=== PATIENT | male | born 1965 | race Two or more races ===

== ENCOUNTER 2018-02-15 22:55 | Inpatient (IN) | payer OTHER ==
[~2018-02-15] VITALS: Ht 160 cm; Wt 158.8 kg
--- NOTE | 2018-02-15 23:07 | NUR ---
PT BIBRA FROM HOME C/O SOB X1 HR, WHICH WORSENS WITH EXERTION. PER EMS, PT WAS 90% ON ROOM AIR AFTER WALKING AROUND PRIOR TO LOADING INTO THE AMBULANCE. RESP LABORED, RETRACTIONS, MODERATE SOB. PLACED ON 2L VIA NC. SKIN WARM DRY. PT ENDORSES HE IS A 1PPD SMOKER. IN ER BED 08 ON MONITOR.
[2018-02-15] MEDS ORDERED: methylPREDNISolone SOD SUCC 125 MG/2ML VIAL IV ONE (23:30)
[2018-02-15] MEDS ORDERED: ALBUTEROL FS 2.5 MG/3 ML VIAL.NEB NEB ONE (23:30)
[2018-02-15 23:56] LABS: BASOPHILS # (AUTO) 0.2 /CMM (0.0-0.2); BASOPHILS % (AUTO) 2.7 % (0.0-2.0); EOSINOPHILS % (AUTO) 3.4 % (0.0-6.0); HEMATOCRIT 44 % (39-51); HEMOGLOBIN 14.4 g/dL (13.5-17.5); LYMPHOCYTES # (AUTO) 1.2 /CMM (0.8-4.8); LYMPHOCYTES % (AUTO) 15.9 % (20.0-44.0); MEAN CORPUSCULAR HEMOGLOBIN 26 PG (26.0-33.0); MEAN CORPUSCULAR HGB CONC 33 g/dl (31.0-36.0); MEAN CORPUSCULAR VOLUME 81 fL (80-96); MONOCYTES # (AUTO) 0.7 /CMM (0.1-1.30); NEUTROPHILS # (AUTO) 4.9 /CMM (1.8-8.9); PLATELET COUNT (AUTO) 239 /CMM (150-450); RDW COEFFICIENT OF VARIATION 16.4 (11.5-15.0); RED BLOOD CELL COUNT(AUTO) 5.46 MIL/uL (4.5-6.0); WHITE BLOOD COUNT (AUTO) 7.2 K/uL (4.3-11.0)
[2018-02-16 00:10] LABS: CALCIUM, SERUM 8.3 mg/dL (8.5-10.1); CARBON DIOXIDE 35 mmol/L (21-32); CHLORIDE 100 mmol/L (98-107); CREATININE 0.7 mg/dL (0.6-1.3); GLUCOSE 83 mg/dL (74-106); SODIUM SERUM 133 mmol/L (136-145); UREA NITROGEN, BLOOD 10 mg/dL (7-18)
[2018-02-16 00:16] LABS: INR 0.95 (0.87-1.13)
[2018-02-16 00:18] LABS: TROPONIN I < 0.017 ng/mL (0.00-0.056)
[2018-02-16] MEDS ORDERED: methylPREDNISolone SOD SUCC 125 MG/2ML VIAL ONE (00:21)
[2018-02-16 00:23] LABS: ALANINE AMINOTRANSFERASE 25 U/L (12-78); ALBUMIN 3.3 g/dL (3.4-5.0); ALKALINE PHOSPHATASE 83 U/L (46-116); ASPARTATE AMINOTRANSFERASE 17 U/L (15-37); B-TYPE NATRIURETIC PEPTIDE 108 PG/ML (0-125); BILIRUBIN,DIRECT 0.1 mg/dL (0.0-0.2); BILIRUBIN,TOTAL 0.4 mg/dL (0.2-1.0)
[2018-02-16] MEDS ORDERED: ALBUTEROL FS 2.5 MG/3 ML VIAL.NEB ONE (00:25)
--- NOTE | 2018-02-16 00:29 | NUR ---
NOTED HYPERTENSION; NOTIFIED DR SERVIN. NEW ORDERS NOTED
[2018-02-16] MEDS ORDERED: FUROSEMIDE 40 MG/4 ML VIAL IV ONE (00:30)
[2018-02-16] MEDS ORDERED: FUROSEMIDE 40 MG/4 ML VIAL ONE (00:38)
--- NOTE | 2018-02-16 01:00 | NUR ---
RESTING QUIETLY, NAD NOTED. TOLERATING WELL ON 2L VIA NC.
--- NOTE | 2018-02-16 02:49 | NUR ---
PT DOES NOT REMEMBER HIS HOME MED NAMES OR DOSAGES
--- NOTE | 2018-02-16 02:51 | NUR ---
REPORT GIVEN TO KRISH BOSS FOR ADMISSION
--- NOTE | 2018-02-16 03:48 | NUR ---
PT TRANSPORTED TO [facility] RM 112-1 IN STABLE CONDITION VIA WHEELCHAIR, PT REQUESTED.
[2018-02-16 04:00] VITALS: BP 127/78
[2018-02-16] MEDS ORDERED: ACETAMINOPHEN 325 MG TABLET PO PRN (04:00)
[2018-02-16] MEDS ORDERED: HYDROCODONE/APAP 5/325MG 1 EACH TABLET PO PRN (04:30)
[2018-02-16] MEDS ORDERED: ALBUTEROL FS 2.5 MG/0.5 ML VIAL.NEB NEB PRN (04:30)
[2018-02-16] MEDS ORDERED: IPRATROPIUM NEB FS 0.5 MG/2.5 ML AMPUL.NEB NEB PRN (04:30)
--- NOTE | 2018-02-16 05:32 | NUR ---
RN NOTE RECEIVED PATIENT FROM ER VIA WHEELCHAIR, SOB NOTED, ON 2L/MIN VIA NASAL CANULA, SO2 93%, GENERALIZED PAIN, PAIN MEDICATION ADMINISTERED, DX CHEST PAIN, ALERT/ORIENTED X4, ABLE TO TRANSFER FROM CHAIR TO BED, REQUESTED TO SEAT IN THE CHAIR, ALL PICTURES TAKEN AND PLACED IN THE CHART, ALL SAFETY MEASURES TAKEN, WILL CONTINUE TO MONITOR PATIENT
[2018-02-16] MEDS ORDERED: METF-442 PO (05:54)
[2018-02-16] MEDS ORDERED: ATOR40TA PO (05:54)
[2018-02-16] MEDS ORDERED: LOSA50TA21 PO (05:59)
[2018-02-16] MEDS ORDERED: [UNRECOGNIZED DRUG - CODE] (05:59)
[2018-02-16] MEDS ORDERED: FURO-144 PO (06:00)
[2018-02-16] MEDS ORDERED: methylPREDNISolone SOD SUCC 40 MG/ML VIAL IV SCH (06:00)
--- NOTE | 2018-02-16 06:40 | NUR ---
RN NOTE PATIENT IS NOT ABLE TO URINATE, NOTIFIED DR MELVA Benites, NEW ORDER OF HARVEY CATH IS GIVEN AND CARRIED OUT, NOTIFIED DR FRYE THAT MED RECON. WAS DONE, DR MELVA Benites SAID THAT HE WILL REVIEW MEDICATION ONCE HE COMES IN THE MORNING, CHARGE NURSE IS AWARE, WILL NOTIFY AM SHIFT
[2018-02-16 06:56] LABS: TROPONIN I < 0.017 ng/mL (0.00-0.056)
[2018-02-16 07:08] LABS: CHOLESTEROL 217 mg/dL (<200); HDL CHOLESTEROL 47 mg/dL (40-60); LDL 161 mg/dL (0-99); TRIGLYCERIDES 111 mg/dL (30-150)
[2018-02-16 07:18] LABS: CALCIUM, SERUM 8.4 mg/dL (8.5-10.1); CARBON DIOXIDE 31 mmol/L (21-32); CHLORIDE 98 mmol/L (98-107); CREATININE 0.8 mg/dL (0.6-1.3); GLUCOSE 159 mg/dL (74-106); POTASSIUM 4.5 mmol/L (3.5-5.1); SODIUM SERUM 137 mmol/L (136-145); UREA NITROGEN, BLOOD 11 mg/dL (7-18)
[2018-02-16 07:32] LABS: BASOPHILS % (AUTO) 0.2 % (0.0-2.0); EOSINOPHILS % (AUTO) 0.4 % (0.0-6.0); HEMATOCRIT 45 % (39-51); HEMOGLOBIN 14.9 g/dL (13.5-17.5); LYMPHOCYTES % (AUTO) 5.9 % (20.0-44.0); MEAN CORPUSCULAR HEMOGLOBIN 27 PG (26.0-33.0); MEAN CORPUSCULAR HGB CONC 33 g/dl (31.0-36.0); MEAN CORPUSCULAR VOLUME 81 fL (80-96); MONOCYTES % (AUTO) 1.7 % (2.0-12.0); NEUTROPHILS % (AUTO) 91.8 % (43.0-81.0); PLATELET COUNT (AUTO) 222 /CMM (150-450); RDW COEFFICIENT OF VARIATION 17.9 (11.5-15.0); RED BLOOD CELL COUNT(AUTO) 5.58 MIL/uL (4.5-6.0); WHITE BLOOD COUNT (AUTO) 8.9 K/uL (4.3-11.0)
[2018-02-16 08:00] VITALS: BP 138/79
[2018-02-16] MEDS: PANTOPRAZOLE 40 MG TABLET.DR PO SCH (08:09)
[2018-02-16] MEDS: ASPIRIN 81 MG TAB.CHEW PO SCH (08:09)
[2018-02-16] MEDS ORDERED: *INSULIN REGULAR(HUMULIN R)HUM 100 UNIT/ML VIAL SQ PRN (08:30)
[2018-02-16] MEDS ORDERED: DEXTROSE 50%-WATER 50 ML DISP.SYRIN IV PRN (08:30)
[2018-02-16] MEDS: BLOOD SUGAR DIAGNOSTIC 1 EACH STRIP VI SCH ×4 (08:41→22:03)
--- NOTE | 2018-02-16 08:51 | NUR ---
WOUND CARE CONSULT: PT PRESENTS WITH REDNESS AND EDEMA TO LOWER LEGS WITH LEFT CALF MORE EDEMATOUS THAN RIGHT. MD IN TO EXAMINE PT. DEFER TO MD FOR LOWER LEG REDNESS, EDEMA. PT COMPLAINS OF GROIN FOLD ITCHING. SLIGHT REDNESS NOTED TO GROIN FOLDS AND PERINEUM. RECOMMENDATIONS MADE FOR SKIN PROTECTION AND CARE. DISCUSSED WITH NURSING STAFF. CANDICE GAR NOTED. PT CONTINENT OF STOOL. PT ABLE TO ASSIST WITH TURNING AND REPOSITIONING IN BED. WILL SEE PRN. IN AGREEMENT WITH PLAN OF CARE. Addendum: 02/16/18 at 0853 by HARPAL CANNON WNDNU Amended: Links added.
[2018-02-16] MEDS ORDERED: LEVOFLOXACIN (250MG) 250 MG TABLET PO SCH (09:00)
[2018-02-16] MEDS ORDERED: ENOXAPARIN SODIUM 40 MG/0.4 ML DISP.SYRIN SQ SCH (09:00)
[2018-02-16] MEDS: METFORMIN XR 500 MG TAB.SR.24H PO SCH (10:36)
[2018-02-16] MEDS: ATORVASTATIN 40 MG TABLET PO SCH ×2 (10:36→18:00)
[2018-02-16] MEDS: LOSARTAN POTASSIUM 50 MG TABLET PO SCH ×2 (10:37→17:59)
[2018-02-16] MEDS: Z GUARD REMEDY 2 OZ OINT TP SCH (10:37)
[2018-02-16] MEDS: CLOTRIMAZOLE 1% 15 GM TUBE TP SCH ×2 (10:37→18:05)
[2018-02-16] MEDS: FUROSEMIDE 40 MG/4 ML VIAL IV SCH (10:38)
[2018-02-16] MEDS: INSULIN REGULAR, HUMAN 100 UNIT/ML 3 ML VIAL SQ PRN ×3 (10:41→18:01)
[2018-02-16] MEDS: LEVOFLOXACIN (500MG) 500 MG TABLET PO SCH (10:55)
[2018-02-16 12:00] VITALS: BP 127/70
[2018-02-16 16:00] VITALS: BP 95/58
[2018-02-16 16:08] VITALS: BP 95/58
[2018-02-16] MEDS: methylPREDNISolone SOD SUCC 40 MG/ML VIAL IV SCH (17:57)
--- NOTE | 2018-02-16 18:37 | NUR ---
RN NOTE PT WAS SUPPOSED TO BE TRANSFERRED TO [facility], ARRANGEMENTS WERE DONE BUT WHEN PT LEARNED ABOUT TRANSFER HE BECAME VERY UPSET, DR JO CONTACTED, HE SPOKE WITH DR, PT STATED "I WILL NOT GO THERE, THIS IS TOO MUCH FOR ME, I WAITED FOR 6-7HR IN ER, I DO NOT WANT TO GO EVER SAME THING AGAIN". PER DR JO PT TO STAY OVERNIGHT AND DC HOME TOMORROW.
[2018-02-16 20:00] VITALS: BP 127/59
--- NOTE | 2018-02-16 21:29 | NUR ---
RN NOTE BLOOD IN THE HARVEY CATH NOTED, NOTIFIED DR MELVA Cisneros, PER MD ORDER COLLECT URINE AND HOLD LOVENOX, ORDER WAS CARRIED OUT
--- NOTE | 2018-02-16 23:00 | NUR ---
RN NOTE CHARGE NURSE RAO RECEIVED CALL FROM JUANY FROM [facility], PER JUANY PATIENT NEEDS TO BE TRANSFERRED TODAY DUE TO INSURANCE PURPOSES, NOTIFIED DR SANDRO Benites, PER MD SANDRO SOLIS TO PUT DISCHARGE ORDER AND TRANSFER PATIENT TO [facility], CALLED [facility] AT AND , AND WAS TOLD THAT THEY DO NOT HOLD BED FOR PATIENT BECAUSE IT WAS CANCELLED BY THE MORNING SHIFT AND BARIATRIC BED IS NOT AVAILABLE, NOTIFIED JUANY AT , JUANY (FROM [facility]) SPOKE TO [facility], PER JUANY SHE WILL PUT ON HOLD AMBULANCE FOR NOW AND WAIT UNTIL BED WILL BE AVAILABLE IN THE [facility], CHARGE NURSE YEH IS AWARE, FELTER TENNIS BALLS IS AWARE, IS AWARE
--- NOTE | 2018-02-16 23:37 | NUR ---
RN NOTE PATIENT WILL BE GOING TO [facility], PATIENT REFUSED TO REMOVE HARVEY CATHETER, NOTIFIED DR SANDRO Benites, NO NEW ORDERS AT THIS TIME
[2018-02-17] VITALS: BP 138/74
[2018-02-17 04:00] VITALS: BP 133/71
--- NOTE | 2018-02-17 06:34 | NUR ---
RN NOTE SPOKE TO JAYLEN ([facility] LOADING MACHINE OPERATOR HELPER), PER FERN PICKER JAYLEN BED IS NOT AVAILABLE IN THE [facility] YET, WILL NOTIFY MORNING SHIFT ONCE AVAILABLE, WILL ENDORSE TO AM SHIFT
[2018-02-17] MEDS: methylPREDNISolone SOD SUCC 40 MG/ML VIAL IV SCH (06:43)
[2018-02-17 07:33] LABS: CALCIUM, SERUM 8.4 mg/dL (8.5-10.1); CREATININE 0.7 mg/dL (0.6-1.3); POTASSIUM 3.9 mmol/L (3.5-5.1)
[2018-02-17 07:43] LABS: BASOPHILS % (AUTO) 0.2 % (0.0-2.0); EOSINOPHILS % (AUTO) 0.2 % (0.0-6.0); HEMATOCRIT 45 % (39-51); HEMOGLOBIN 14.4 g/dL (13.5-17.5); LYMPHOCYTES # (AUTO) 1.1 /CMM (0.8-4.8); LYMPHOCYTES % (AUTO) 8.4 % (20.0-44.0); MEAN CORPUSCULAR HEMOGLOBIN 26 PG (26.0-33.0); MEAN CORPUSCULAR HGB CONC 32 g/dl (31.0-36.0); MEAN CORPUSCULAR VOLUME 81 fL (80-96); MONOCYTES # (AUTO) 1.2 /CMM (0.1-1.30); MONOCYTES % (AUTO) 9.4 % (2.0-12.0); NEUTROPHILS # (AUTO) 10.6 /CMM (1.8-8.9); NEUTROPHILS % (AUTO) 81.8 % (43.0-81.0); PLATELET COUNT (AUTO) 255 /CMM (150-450); RDW COEFFICIENT OF VARIATION 16.3 (11.5-15.0); WHITE BLOOD COUNT (AUTO) 12.9 K/uL (4.3-11.0)
--- NOTE | 2018-02-17 07:45 | NUR ---
COMMUNICATION ARTS LECTURER OPENING NOTES RECEIVED PATIENT AWAKE ALERT AND VERBALLY RESPONSIVE, ABLE TO MAKE NEEDS KNOWN. RESPIRATIONS EVEN AND UNLABORED, DENIES ANY PAIN OR DISCOMFORT AT THIS TIME. HARVEY CATHETER IN PLACE DRAINING PINK TINGED URINE, MD AWARE, LOVENOX AND ASA ON HOLD PER MD. PATIENT TO BE DISCHARGED TO [facility], WILL FOLLOW UP WITH CM. SAFETY MEASURES IN PLACE WILL CONTINUE TO MONITOR
[2018-02-17] MEDS: BLOOD SUGAR DIAGNOSTIC 1 EACH STRIP VI SCH (07:48)
[2018-02-17] MEDS: INSULIN REGULAR, HUMAN 100 UNIT/ML 3 ML VIAL SQ PRN (07:51)
[2018-02-17 08:00] VITALS: BP 133/68
[2018-02-17] MEDS: METFORMIN XR 500 MG TAB.SR.24H PO SCH (08:37)
[2018-02-17] MEDS: LEVOFLOXACIN (500MG) 500 MG TABLET PO SCH (08:38)
[2018-02-17 08:39] VITALS: BP 133/68
[2018-02-17] MEDS: LOSARTAN POTASSIUM 50 MG TABLET PO SCH (08:39)
[2018-02-17] MEDS: PANTOPRAZOLE 40 MG TABLET.DR PO SCH (08:39)
[2018-02-17] MEDS: ASPIRIN 81 MG TAB.CHEW PO SCH (08:40)
[2018-02-17] MEDS: FUROSEMIDE 40 MG/4 ML VIAL IV SCH (08:40)
[2018-02-17] MEDS: Z GUARD REMEDY 2 OZ OINT TP PRN ×2 (08:52→09:40)
--- NOTE | 2018-02-17 11:00 | NUR ---
RN NOTES PT WITH DISCHARGE ORDERS, PICTURES IN CHART WITHIN 24 HOURS, WILL CONTINUE TO ASSIST WITH DC PROCESS
[2018-02-17] MEDS: CLOTRIMAZOLE 1% 15 GM TUBE TP SCH (11:03)
[2018-02-17] MEDS: Z GUARD REMEDY 2 OZ OINT TP SCH (11:03)
--- NOTE | 2018-02-17 11:15 | NUR ---
RN NOTES MRSA SWAB COLLECTED, PLACED IN SPECIMEN REFRIGERATOR AND LAB CALLED FOR TOBACCO WEIGHER
--- NOTE | 2018-02-17 12:12 | NUR ---
CLEAN ROOM OPERATOR NOTES PATIENT AWAKE ALERT AND VERBALLY RESPONSIVE, ABLE TO MAKE NEEDS KNOWN. RESPIRATIONS EVEN AND UNLABORED, DENIES ANY PAIN OR DISCOMFORT AT THIS TIME. HARVEY CATHETER IN PLACE DRAINING PINK TINGED URINE, MD AWARE, LOVENOX AND ASA ON HOLD PER MD. PATIENT TO BE DISCHARGED TO [facility], REPORT GIVEN TO YORDY AT [facility] MADE AWARE OF PATIENT CARE AND FOLLOW UP, ALL DUE MEDICATIONS GIVEN PT TO EAT MEAL UPON ADMISSION TO [facility]. MED REC AND DISCHARGE INSTRUCTIONS REVIEWED WITH PT AND YORDY RN WITH NOTED VERBAL UNDERSTANDING, REPORT GIVEN TO EMT FOR CONTINUITY OF CARE, DISCHARGED IN STABLE CONDITION
== END 2018-02-17 12:17 | disposition home or self-care (01) | DRG 140 ==
LOC: ER 22:57 → TELE1 02-16 03:18
PROVIDERS: ADMIT Internal Medicine; ATTEND Internal Medicine
DX: J44.1 Chronic obstructive pulmonary disease with (acute) exacerbation (principal); I50.33 Acute on chronic diastolic (congestive) heart failure; E66.01 Morbid (severe) obesity due to excess calories; Z99.81 Dependence on supplemental oxygen; I11.0 Hypertensive heart disease with heart failure; E11.9 Type 2 diabetes mellitus without complications; R07.9 Chest pain, unspecified; F17.200 Nicotine dependence, unspecified, uncomplicated; G47.33 Obstructive sleep apnea (adult) (pediatric); Z79.84 Long term (current) use of oral hypoglycemic drugs; Z79.899 Other long term (current) drug therapy; I87.2 Venous insufficiency (chronic) (peripheral); R60.0 Localized edema; E78.5 Hyperlipidemia, unspecified; Z82.49 Family history of ischemic heart disease and other diseases of the circulatory system; Z91.14 Patient's other noncompliance with medication regimen
CPT/HCPCS: 36415; 71045-TC; 80048-TC; 80061-TC; 80076-TC; 82962-TC; 83880; 84484-TC; 85025-TC; 85730-TC; 87086-TC; 93307-TC; 93970-TC; A4606; J1650; J1815; J1940; J2920; J2930; Z7610

== ENCOUNTER 2018-08-30 15:25 | Emergency (ER) | payer OTHER ==
[~2018-08-30] VITALS: Ht 162.6 cm; Wt 151.0 kg
[~2018-08-30 15:25] MED LIST: ATOR40TA PO; FURO-144 PO; LOSA50TA39 PO; METF-442 PO; [UNRECOGNIZED DRUG - CODE]
--- NOTE | 2018-08-30 15:46 | NUR ---
SOB SINCE YESTERDAY WITH COUGH. STATES HE'S ON O2 AT HOME. SATTING AT 92% ON RA, PLACED ON 3L NC, NOW AT 97-100%. SKIN INTACT, NO ACUTE DISTRESS NOTED. AOX4, AMB, VSS. HOOKED TO MONITOR. READY FOR EVAL.
[2018-08-30] MEDS ORDERED: methylPREDNISolone SOD SUCC 125 MG/2ML VIAL ONE (15:52)
[2018-08-30] MEDS ORDERED: ALBUTEROL FS 2.5 MG/3 ML VIAL.NEB NEB ONE (16:00)
[2018-08-30] MEDS ORDERED: IPRATROPIUM NEB FS 0.5 MG/2.5 ML AMPUL.NEB NEB ONE (16:00)
[2018-08-30] MEDS ORDERED: methylPREDNISolone SOD SUCC 125 MG/2ML VIAL IV ONE (16:00)
[2018-08-30] MEDS ORDERED: IPRATROPIUM NEB FS 0.5 MG/2.5 ML AMPUL.NEB ONE (16:02)
[2018-08-30] MEDS ORDERED: ALBUTEROL FS 2.5 MG/3 ML VIAL.NEB ONE (16:02)
--- NOTE | 2018-08-30 17:15 | NUR ---
BREATHING TREATMENT COMPLETED. PT TOLERATED WELL. SATTING AT 98% ON RA. WILL CONT TO MONITOR.
--- NOTE | 2018-08-30 17:40 | NUR ---
IV removed. Catheter intact and site benign. Pressure and 4x4 applied to site. No bleeding noted. Patient discharged to home in stable condition. Written and verbal after care instructions given. Patient verbalizes understanding of instruction.
[2018-08-30 18:16] VITALS: BP 159/98
[2018-08-31] MEDS ORDERED: PRED20TA PO (12:06)
[2018-08-31] MEDS ORDERED: METO-356 PO (12:21)
== END 2018-08-30 17:40 | disposition home or self-care (01) ==
LOC: ER 15:25
DX: J44.9 Chronic obstructive pulmonary disease, unspecified (principal); J20.9 Acute bronchitis, unspecified; J06.9 Acute upper respiratory infection, unspecified; I10 Essential (primary) hypertension; E11.9 Type 2 diabetes mellitus without complications; F17.200 Nicotine dependence, unspecified, uncomplicated; Z60.2 Problems related to living alone; Z79.899 Other long term (current) drug therapy; Z79.84 Long term (current) use of oral hypoglycemic drugs
CPT/HCPCS: 71045; 93005; 94644; 96374; 99285; J2930

== ENCOUNTER 2018-08-31 09:50 | Emergency (ER) | payer OTHER ==
[~2018-08-31] VITALS: Ht 162.6 cm; Wt 151.1 kg
--- NOTE | 2018-08-31 10:15 | NUR ---
TO ER BED 2. CONNECTED TO MONITOR, O2 @ 2LPM VIA NC. NO ACUTE DISTRESS. AWAITING MD FLAHERTY
--- NOTE | 2018-08-31 10:16 | NUR ---
SEEN BY . AWAITING ORDERS
[2018-08-31] MEDS ORDERED: IPRATROPIUM NEB FS 0.5 MG/2.5 ML AMPUL.NEB NEB ONE (10:30)
[2018-08-31] MEDS ORDERED: ASPIRIN 325 MG TABLET PO ONE (10:30)
[2018-08-31] MEDS ORDERED: ALBUTEROL FS 2.5 MG/3 ML VIAL.NEB NEB ONE (10:30)
[2018-08-31] MEDS ORDERED: methylPREDNISolone SOD SUCC 125 MG/2ML VIAL IV ONE (10:30)
[2018-08-31] MEDS ORDERED: FUROSEMIDE 40 MG/4 ML VIAL IV ONE (10:30)
[2018-08-31] MEDS ORDERED: NITROGLYCERIN PACKET 1 GM PACKET TD ONE (10:30)
[2018-08-31] MEDS ORDERED: methylPREDNISolone SOD SUCC 125 MG/2ML VIAL ONE (10:33)
[2018-08-31] MEDS ORDERED: FUROSEMIDE 40 MG/4 ML VIAL ONE (10:33)
[2018-08-31] MEDS ORDERED: ASPIRIN 325 MG TABLET ONE (10:34)
[2018-08-31] MEDS ORDERED: NITROGLYCERIN PACKET 1 GM PACKET ONE (10:34)
[2018-08-31] MEDS ORDERED: IPRATROPIUM NEB FS 0.5 MG/2.5 ML AMPUL.NEB ONE (10:39)
[2018-08-31] MEDS ORDERED: ALBUTEROL FS 2.5 MG/3 ML VIAL.NEB ONE (10:39)
[2018-08-31 10:46] LABS: BASOPHILS % (AUTO) 0.3 % (0.0-2.0); EOSINOPHILS % (AUTO) 0.4 % (0.0-6.0); HEMATOCRIT 51 % (39-51); HEMOGLOBIN 16.4 g/dL (13.5-17.5); LYMPHOCYTES # (AUTO) 0.3 /CMM (0.8-4.8); LYMPHOCYTES % (AUTO) 2.4 % (20.0-44.0); MEAN CORPUSCULAR HGB CONC 32 g/dl (31.0-36.0); MEAN CORPUSCULAR VOLUME 82 fL (80-96); MONOCYTES # (AUTO) 0.9 /CMM (0.1-1.30); MONOCYTES % (AUTO) 8.1 % (2.0-12.0); NEUTROPHILS # (AUTO) 9.7 /CMM (1.8-8.9); NEUTROPHILS % (AUTO) 88.8 % (43.0-81.0); PLATELET COUNT (AUTO) 223 /CMM (150-450); RED BLOOD CELL COUNT(AUTO) 6.23 MIL/uL (4.5-6.0); WHITE BLOOD COUNT (AUTO) 10.9 K/uL (4.3-11.0)
[2018-08-31 10:57] LABS: CALCIUM, SERUM 8.8 mg/dL (8.5-10.1); CARBON DIOXIDE 28 mmol/L (21-32); CHLORIDE 103 mmol/L (98-107); CREATININE 0.8 mg/dL (0.6-1.3); GLUCOSE 107 mg/dL (74-106); POTASSIUM 5.1 mmol/L (3.5-5.1); SODIUM SERUM 138 mmol/L (136-145); UREA NITROGEN, BLOOD 14 mg/dL (7-18)
--- NOTE | 2018-08-31 11:05 | NUR ---
TURNED IN MOVE SHEET
[2018-08-31 11:10] LABS: ALANINE AMINOTRANSFERASE 25 U/L (12-78); ALBUMIN 3.5 g/dL (3.4-5.0); ALKALINE PHOSPHATASE 100 U/L (46-116); ASPARTATE AMINOTRANSFERASE 28 U/L (15-37); B-TYPE NATRIURETIC PEPTIDE 313 PG/ML (0-125); BILIRUBIN,TOTAL 0.5 mg/dL (0.2-1.0); TOTAL PROTEIN, SERUM 7.6 g/dL (6.4-8.2)
[2018-08-31] MEDS ORDERED: PRED20TA PO (12:06)
[2018-08-31] MEDS ORDERED: METO-356 PO (12:21)
--- NOTE | 2018-08-31 13:08 | NUR ---
RECEIVED CALL FROM RAGHAV WITH [facility], INFORMED HER SPOKE WITH AND ACCEPTED THE PT AT [facility], SHE SAID SHE WILL CALL [facility] AND CALL ME BACK WITH BED ASSIGNMENT AND TRANSPORTATION INFO.
--- NOTE | 2018-08-31 13:39 | NUR ---
RECEIVED CALL FROM RAGHAV WITH [facility], PT GOING TO ROOM 211-B AT [facility], NUMBER TO GIVE REPORT IS [phone] NURSE IS [place]. RAGHAV WILL CALL BACK WITH ETA FROM [facility].
--- NOTE | 2018-08-31 13:50 | NUR ---
ETA FOR [facility] IS 45 MIN-1 HOUR
[2018-08-31 13:56] VITALS: BP 147/56
--- NOTE | 2018-08-31 15:03 | NUR ---
PT TRANSPROTED TO [facility] [place] VIA PRIVATE AMBULANCE, LEFT IN STABLE CONDITION, PT TRANSPORTED WITH [facility]. REPORT GIVEN TO KRYSTAL BOSS AT [facility]. ALL PPW GIVEN TO AMBULANCE STAFF.
== END 2018-08-31 15:08 | disposition short-term general hospital (02) ==
LOC: ER 09:50
DX: J44.9 Chronic obstructive pulmonary disease, unspecified (principal); I11.0 Hypertensive heart disease with heart failure; I50.21 Acute systolic (congestive) heart failure; E11.9 Type 2 diabetes mellitus without complications; F17.200 Nicotine dependence, unspecified, uncomplicated; Z60.2 Problems related to living alone
CPT/HCPCS: 36415; 71045; 80048; 80076; 83880; 84484; 85025; 85730; 87081; 93005; 94640 ×2; 96374; 96375; 99285; 99406; J1940; J2930